=== PATIENT | female | born 2000 | race Caucasian/White ===

== ENCOUNTER 2022-08-30 17:12 | Emergency (ER) | payer OTHER, SELFPAY ==
[2022-08-30 17:29] VITALS: BP 120/80; PULSE 60; RESP 12; TEMP 36.4; O2SAT 100
--- NOTE | 2022-08-30 17:33 | ED.WOUNDLAC ---
HPI - Wound/Laceration General Chief Complaint: Skin/Abscess/Foreign Body Stated Complaint: rash Time Seen by Provider: 08/30/22 17:22 Source: patient Mode of arrival: ambulatory Limitations: no limitations History of Present Illness HPI narrative: Patient is a 21-year-old female that presents with wound to right forearm. States she noticed the center scab on Saturday at [place], but since then it has become more swollen, warm to touch, tender, hard and she feels it pulsing. Denies any drainage from wound. States she was cleaning out an old chicken coop on Saturday. Denies any numbness tingling to hand. Wound is over old surgical site for ulnar plate. Related Data Allergies Allergy/AdvReac Type Severity Reaction Status Date / Time No Known Allergies Allergy Verified 08/30/22 17:43 Review of Systems Review of Systems: All systems reviewed & are unremarkable except as noted in HPI and below Constitutional: Constitutional: Denies body ache(s), Denies fever(s), Denies headache(s), Denies malaise and Denies weakness Eyes: Eyes: Denies loss of vision ENT: Denies otalgia, Denies headache(s), Denies nasal discharge, Denies sinus pain and Denies sore throat Cardiovascular: Cardiovascular: Denies chest pain, Denies irregular heart rhythm and Denies dyspnea Respiratory: Respiratory: Denies dyspnea Gastrointestinal: Gastrointestinal: Denies abdominal pain, Denies melena, Denies hematochezia, Denies diarrhea, Denies nausea and Denies vomiting Musculoskeletal: Musculoskeletal: Denies back pain, Denies myalgias and Denies arthralgias Integumentary/Breasts: Skin/Breast: Reports pruritus and Reports lesions (right forearm) Neurologic: Denies headache(s), Denies loss of vision and Denies weakness Psychiatric: Psychiatric: Reports no additional psychiatric complaints PMFSH Comments At time of signature, agree with nursing past medical, surgical, social and family history. There is no relevant family history pertinent to the presenting complaint. Exam Const: General: cooperative, healthy appearing, comfortable, no acute distress and well nourished Nutritional Appearance: well nourished Orientation/consciousness: patient oriented x3 Limitations: no limitations HENMT: Head: normal to inspection, normocephalic and atraumatic Ears: external ears normal Face/Nose/Sinus: Normal external nose present, normal facial exam and face symmetric Face and sinus: normal facial exam and face symmetric Mouth: Yes lip normal Eyes: General: appearance normal, both eyes and all related structures Alignment and Position: alignment normal and position normal Periorbital: periorbital findings normal Eyelids: eyelids normal Pupils: Equal, round and reactive pupils present EOM: EOMs intact bilaterally Neck: Neck: normal visual inspection and full ROM Chest: Chest palpation & inspection: normal inspection of the chest Resp: Effort & Inspection: normal respiratory effort and able to speak in complete sentences Auscultation: clear to auscultation bilaterally Cardio: Rate: regular rate Rhythm: regular rhythm Heart sounds: S1 normal heart sound present and S2 normal heart sound present GI: Inspection: normal to inspection Skin: General skin exam: normal color Neuro: General: patient oriented x3 and moves all extremities Cranial nerves: Yes Equal, round and reactive pupils present Speech: normal speech Gait exam (Neuro): Normal gait present Extrem: General: normal to inspection, full ROM and no edema Right upper extremity: elbow/forearm abnormal to inspection erythema (midshaft forearm), tenderness of the mid-shaft forearm, swelling of the mid-shaft forearm medially, normal ROM, warmth (midshaft forearm) and distal pulses intact Elbow/forearm/wrist images: 1. 8cm by 5cm area of erythema, warmth, and induration noted. no fluctuance. center with 2 cm abrasion that was scabbed. visually see color change from pale to red with heart beat. tender on
== END 2022-08-30 17:55 | disposition home or self-care (01) ==
PROVIDERS: Emergency Provider Nurse Practitioner Family
DX: L03.113 Cellulitis of right upper limb (principal)
CPT/HCPCS: 87070; 87205; 99213; G0463

== ENCOUNTER 2025-03-02 18:38 | Emergency (ER) | payer OTHER, SELFPAY ==
--- OUTSIDE RECORDS SUMMARY | 2025-03-02 18:40 | XMS_ITS | Clinical Summary ---
Author Organization [facility] Address [address] [place] [address] Care Team Providers Care Environmental Field Technician Name Role Phone None, Provider MD Primary Care Provider Unavaila ble Allergies No known active allergies Medications hydrocortisone (CORTIZONE) 1 % ointment Apply topically 2 (two) times daily. 28 g 3 Active methylPREDNISol dorian BISHNU, (MEDROL DOSEPAK) 4 MG tablet 6 TABLETS ON DAY ONE, 5 TABLETS DAY TWO, 4 TABLETS DAY THREE, 3 TABLETS DAY FOUR, 2 TABLETS DAY FIVE, AND 1 TABLET DAY SIX 1 each 3 Active Social History Tobacco Use Types Packs/Day Years Used Date Smoking Tobacco: Never Assessed Comments No Sex and Gender Information Value Date Recorded Sex Assigned at Not on file Legal Sex Female 7:22 AM CDT Gender Identity Not on file Sexual Orientation Not on file Last Filed Vital Signs Vital Sign Reading Time Taken Comments Blood Pressure 127/67 09/03/2022 7:28 AM CDT Pulse 89 09/03/2022 7:28 AM CDT Temperature 36.6 C (97.9 F) 09/03/2022 7:28 AM CDT Respiratory Rate 16 09/03/2022 7:28 AM CDT Oxygen Saturation 99% 09/03/2022 7:28 AM CDT Inhaled Oxygen Concentration - - Weight 66.2 kg (146 lb) 09/03/2022 7:27 AM CDT Height 157.5 cm (5' 2) 09/03/2022 7:27 AM CDT Body Mass Index 26.7 09/03/2022 7:27 AM CDT Plan of Treatment Upcoming Encounters Date Type Department Care Team (Late st Contact Info) Description 03/11/2025 1:20 PM CDT Office Visit [facility] [address] [place] [address] Sara Flores, [facility] [address] [id number] Health Maintenance Due Date Last Done Comments Cervical Cancer Screening Pap Smear (Age 21 to 29) Every 3 Years 2002 Cervical Cancer Screening 2002 Annual Physical 2005 HPV Vaccines (1 - 3-dose series) 2017 Hepatitis C 2020 Meningococcal B Vaccine (2 of 2 - Trumenba SCDM 2-dose series) 06/25/2021 12/23/2020 DTaP, Tdap and Td Vaccines (7 - Td or Tdap) 11/14/2023 11/13/2013, 03/02/2008, 06/14/2004, Additional history exists COVID-19 Vaccine ( season) 2025 05/30/2021, 10/20/2020, 09/22/2020 Influenza Adult (#1) 2025 03/02/2008, 05/30/2005, 04/26/2004, Additional history exists Pneumococcal Vaccine: Pediatrics (0 to 5 Years) and At-Risk Patients (6 to 49 Years) Aged Out 03/06/2004, 07/09/2003, 04/06/2003, Additional history exists No longer eligible based on patient's age to complete this topic Meningococcal Vaccine Completed 12/23/2020 , 01/04/2016, 11/16/2014 Hepatitis B Vaccines Completed 06/12/2022, 02/20/2022, 01/23/2022, Additional history exists RSV Immunizations Under 20 Months Aged Out No longer eligible based on patient's age to complete this topic Insurance [facility] Care Teams Environmental Field Technician Relationship Specialty Start Date End Date None, Provider, PCP - General UNKNOWN PHYSICIAN SPECIALTY 09/03/22 1
--- OUTSIDE RECORDS SUMMARY | 2025-03-02 18:40 | XMS_ITS | Clinical Summary ---
Author Organization [facility] Address [address] [place] [address] Care Team Providers Care Machine Brush Maker Name Role Phone Isai Sahu MD Primary Care Provider [phone] Source Comments [facility],non-owned Affiliates and Associated Physician Practices is amultiple site organization consisting of ambulatory clinics and hospital sitesin [place], [place], [place] and [place]. This disclosure is being madepursuant to the Care Everywhere program and may not contain all information available regarding this patient. Last updated 18.[facility] Allergies Active Allergy Reactions Criticality Noted Date Comments Clindamycin Itching,Skin Reactions 06/09/2024 Medications * Be aware that medications may not be up to date on this document. Alwaysverify current medications with the patient. atomoxetine (Strattera) 40 MG capsule 03/09/2024 Active Active Problems No known active problems Immunizations Immunization Administration Dates Next Due Covdilip Automatic Agency primary monoval ent 12+ yr 0.3mL Purple cap 10/20/2020,09/22/2020 DTaP VACCINE IM (6wk-6yrs) 03/02/2008,,07/09/2003,04/06,02/02/2003 HEP A PEDS 2 DOSE 12/05/2005,05/30/2005 HEP B VACCINE, ADULT 3 DOSE 06/12/2022, 2,01/23/2022 HEP B VACCINE, PED/ADOL 09/08/2003,2002, HIB-PRP-T 4 DOSE 03/06/2004, 4,04/06/2003,02/02 INFLUENZA VACCINE 03/02/2008, 6,04/26/2004,03/06 MENINGOCOCCAL ACWY (MCV4P) VAC IM 12/23/2020,02/2016,11/16/2014 MENINGOCOCCAL B RECOMBINANT, 2 OR 3 DOSE, IM 12/23/2020 MMR 03/02/2008,03/06/2004 PNEUMOCOCCAL PCV7 CONJ, PEDS 03/06/2004, 07/09/2003,04/06/2003,02/02 POLIO IPV 03/02/2008, 4,04/06/2003,02/02 TDAP (7yrs+) 11/13/2013 VARICELLA 03/02/2008,03/06/2004 Family History Medical History Relation Name Comments None Known Father Dementia Maternal Grandfather Diabetes - Type 2 Maternal Grandmother None Known Mother Relation Name Status Comments Father Alive Maternal Grandfather Maternal Grandmother Alive Mother Alive Paternal Grandfather Paternal Grandmother Alive Sister Alive Social History Tobacco Use Types Packs/Day Years Used Date Smoking Tobacco: Never Smokeless Tobacco: Never Tobacco Cessation:Counseling Given: Not Answered Alcohol Use Standard Drinks/Week Comments Not Currently 0 (1 standard drink = 0.6 oz pur e alcohol) PHQ-2 Answer Date Recorded Patient Health Questionnaire-2 Score 0 06/10/2024 Comments No Sex and Gender Information Value Date Recorded Sex Assigned at Not on file Legal Sex Female 2:10 PM OPEN HEARTH MELTER Gender Identity Not on file Sexual Orientation Not on file Last Filed Vital Signs Vital Sign Reading Time Taken Comments Blood Pressure 122/72 06/10/2024 10:08 AM OPEN HEARTH MELTER Pulse 70 06/10/2024 10:08 AM OPEN HEARTH MELTER Temperature 36.7 C (98 F) 06/10/2024 10:08 AM OPEN HEARTH MELTER Respiratory Rate 16 06/10/2024 10:08 AM OPEN HEARTH MELTER Oxygen Saturation 99% 06/10/2024 10:08 AM OPEN HEARTH MELTER Inhaled Oxygen Concentration - - Weight 65.3 kg (144 lb) 06/10/2024 10:08 AM OPEN HEARTH MELTER Height 157.5 cm (5' 2) 06/10/2024 10:08 AM OPEN HEARTH MELTER Body Mass Index 26.34 06/10/2024 10:08 AM OPEN HEARTH MELTER Plan of Treatment Health Maintenance Due Date Last Done Comments HIV SCREENING 2017 HPV VACCINE (1 - 3-dose series) 2017 CHLAMYDIA/GONORRHEA SCREENING 2018 HEPATITIS C SCREENING 11/24/2020 MENINGOCOCCAL (Group B) VACC INE SHARED DECISION-MAKING (2 of 2 - Trumenba SCDM 2-dose series) 06/25/2021 12/23/2020 DTAP/TDAP/TD VACCINES (7 - T d or Tdap) 11/14/2023 11/13/2013, 03/02/2008, 06/14/2004, Additional history exists PAP SMEAR 11/30/2023 COVID-19 VACCINE (2024-2 6 season) 2025 02/06/2022, 10/20/2020, 09/22/2020 INFLUENZA VACCINE (#1) 2025 8, 05/30/2005, 04/26/2004, Additional history exists ZOSTER VACCINE (1 of 2) 2052 HIB VACCINE Completed 03/06/2004, 06/27, 04/06/2003, Additional history exists PNEUMOCOCCAL VACCINE Completed 03/06/2004, 07/09/2003, 04/06/2003, Additional history exists MENINGOCOCCAL GROUPS A/C/Y/W VACCINE Completed 12/23/2020, 01/04/2016, 11/16/2014 HEPATITIS B VACCINE Completed 06/12/2022, 02/20/2022, 01/23/2022, Additional history exists DEPRESSION SCREENING Completed 06/10/2024, 01/07/20 Insurance [facility] Care Teams Machine Brush Maker Relationship Specialty Start Date End Date Isai Sahu MD [address] [id number] PCP - General 07/03/24
--- OUTSIDE RECORDS SUMMARY | 2025-03-02 18:40 | XMS_ITS | Clinical Summary ---
Author Organization [facility] Address [facility] [place] [address] Care Team Providers Care Business Librarian Name Role Phone Nandini Everett MD Primary Care Provider [phone] Flavia Carballo MD Unavailable [phone] Allergies No known active allergies Medications acetaminophen (TYLENOL) 325 mg tablet Take 2 tablets (650 mg total) by mouth every 4 (four) hours as needed for pain 10/17/2020 Active ibuprofen (ADVIL,MOTRIN) 200 mg tab/cap Take 3 tablet/capsu le (600 mg total) by mouth every 6 (six) hours as needed for pain 10/17/2020 Active Active Problems Problem Noted Date Diagnosed Date Chronic pain of right wrist 09/26/2020 Overview (09/26/2020): Added automatically from request for surgery [id number] Acute right ankle pain 09/24/2018 Sprain of anterior talofibular ligament of right ankle 09/24/2018 Radius/ulna fracture 02/12/2012 Closed fracture of distal end of radius 02/12/20 12 Medical History Medical History Date Comments Chronic pain of right wrist 09/26/2020 Adde d automatically from request for surgery [id number] Family History Medical History Relation Name Comments No Known Problems Father Relation Name Status Comments Father Social History Tobacco Use Types Packs/Day Years Used Date Smoking Tobacco: Never Smokeless Tobacco: Never Alcohol Use Standard Drinks/Week Comments Never 0 (1 standard drink = 0.6 oz pur e alcohol) AUDIT-C Answer Date Recorded Q1: How often do you have a drink containing alc ohol? Never 01/13/2020 Average Number of Drinks Not on file 020 Frequency of Binge Drinking Not on file 12/25 Personal Safety Answer Date Recorded Getting School Help Needed Not on file 07/23 Comments Unknown Sex and Gender Information Value Date Recorded Sex Assigned at Not on file Legal Sex Female 10:07 AM MANAGER COUNCIL Gender Identity Not on file Sexual Orientation Not on file Obstetrics History Last Filed Vital Signs Vital Sign Reading Time Taken Comments Blood Pressure 134/66 10/17/2020 12:04 PM CDT Pulse 63 10/17/2020 12:04 PM CDT Temperature 36.6 C (97.9 F) 10/17/2020 12:04 PM CDT Respiratory Rate 20 10/17/2020 12:34 PM CDT Oxygen Saturation 98% 10/17/2020 12:04 PM CDT Inhaled Oxygen Concentration - - Weight 68.6 kg (151 lb 3.8 oz) 10/17/2020 8:10 A M CDT Height 161.5 cm (5' 3.58) 10/17/2020 8:10 AM CD T Body Mass Index 26.3 10/17/2020 8:10 AM CDT Plan of Treatment Not on file Medical Devices Implanted Type Area Gate Attendant Device Identifier Shelf Expiration Date Model / Serial / Lot [employer] Plul06 6 Hole Shortening Ulna Plate Bone Titanium Sterile - [id number] Implanted:Qty: 1 on 10/17/2020 by Flavia Carballo MD at [facility] Right: Arm [employer] PLUL06 / / [employer] 30-0258-S 3.5mm 14mm Nonlocking Hexalobe Elbow Screw Bone Sterile - [id number] Implanted:Qty: 1 on 10/17/2020 by Flavia Carballo MD at [facility] Right: Arm [employer] 30-0258-S / / [employer] 30-0257-S 3.5mm 12mm Nonlocking Hexalobe Elbow Screw Bone Sterile - [id number] Implanted:Qty: 5 on 10/17/2020 by Flavia Carblalo MD at [facility] Right: Arm [employer] -S / / [employer] -S Od3.5 Mm L18 Mm Nonlocking; Hexalobe Elbow Screw Bone Sterile - [id number] Implanted:Qty: 1 on 10/17/2020 by Flavia Carballo MD at [facility] Right: Arm [employer] 0-S / / Explanted Type Area Gate Attendant Device Identifier Shelf Expiration Date Model / Serial / Lot [employer] - 3.5mm 16mm Nonlocking Hexalobe Elbow Screw Bone Sterile - [id number] Explanted:Qty: 1 on 10/17/2020 at [facility] Right: Arm [employer] -S / / Insurance [facility] CHO[facility] PLUS [facility] PLUS [facility] PLUS [facility] PLUS [facility] CHO[facility] PLUS Member Subscriber Plan / Payer ( fective 2018-Present) Name:Steph Hylton Relation to Subscriber:Child Name:VIRGILIOPIARUTH Date of :1967 (Home) Address: [address] [place] [address] Payer ID:[id number] (NAIC) Type:[facility] HMO/PPO Address: [address] CHOICE PLUS Member Subscriber Plan / Payer (Ef fective 2020-Present) Name:Steph Hylton Relation to Subscriber:Other Relationship Name:DANETTE HYLTONA Date of :1965 Address: [address] [place] [address] Payer ID:[id number] (NAIC) Type:[facility] HMO/PPO Address: [address] CHOICE PLUS Advance Directives For more information, please contact: [phone] * Full Code (Latest Code Status on File) Date Activated Date Inactivated Comments 10/17/2020 8:10 AM 10/17/2020 4:48 PM Care Teams Business Librarian Relationship Specialty Start Date End Date Nandini Everett MD [address] [facility] [address] [facility] [address] [facility] [address], [address] [address] PCP - General Pediatrics 10/23/17 Flavia Carballo MD [address] [facility] [address] [facility], [facility] [address] [place] [address] Surgeon Orthopedic Surgery 10/17/20
--- NOTE | 2025-03-02 18:42 | ED.SKABFB ---
HPI - Skin/Abscess/Foreign Bdy General Chief complaint: Skin/Abscess/Foreign Body Stated complaint: Skin Time Seen by Provider: 03/02/25 18:42 Source: patient, RN notes reviewed and old records reviewed Mode of arrival: ambulatory Limitations: no limitations History of Present Illness HPI narrative: 24-year-old female presents to the [facility] with a rash, believes to be poison eleonora. Several patches to the bilateral legs, bilateral dorsal hands. No lip or tongue swelling. No difficulty breathing. No treatment prior to arrival Related Data Home Medications ?Medication ?Instructions ?Recorded ?Confirmed ?Last Taken ?Type guanfacine 2 mg tablet,extended mg PO 03/02/25 Unknown History release 24 hr Allergies Allergy/AdvReac Type Severity Reaction Status Date / Time clindamycin Allergy Mild Hives Verified 03/02/25 18:47 Review of Systems Review of Systems: All systems reviewed & are unremarkable except as noted in HPI and below Constitutional: Constitutional: Reports no additional constitutional complaints ENT: Reports system reviewed and no additional complaints, except as documented Cardiovascular: Cardiovascular: Reports no additional cardiovascular complaints, Denies chest pain and Denies dyspnea Respiratory: Respiratory: Reports no additional respiratory complaints, Denies chest congestion, Denies cough and Denies dyspnea Musculoskeletal: Musculoskeletal: Reports no additional musculoskeletal complaints Integumentary/Breasts: Skin/Breast: Reports as per HPI and Reports rash PMFSH Comments At the time of my signature, I reviewed and agree with the nursing past medical, surgical, social, and family history. There is no relevant family history pertinent to the patient complaint. Exam Const: General: cooperative, healthy appearing, comfortable, no acute distress, well developed, alert and well nourished Nutritional Appearance: well nourished Orientation/consciousness: patient oriented x3 Limitations: no limitations HENMT: Head: normal to inspection Mouth: Yes Normal oral and palatal mucosa present, Yes lip normal, Yes tongue normal and Yes moist mucous membranes Throat: posterior oropharynx normal, uvula midline and no uvular edema Eyes: General: appearance normal, both eyes and all related structures Alignment and Position: alignment normal Neck: Neck: normal visual inspection, full ROM, no lymphadenopathy and no meningeal signs Chest: Chest palpation & inspection: normal inspection of the chest Resp: Effort & Inspection: normal respiratory effort and able to speak in complete sentences Auscultation: clear to auscultation bilaterally, no crackles, no rales, no rhonchi and no wheezes Cardio: Rate: regular rate Skin: General skin exam: normal color and no rashes or lesions noted Rashes: rashes noted (Small vesicular areas to legs, surrounding erythema) Neuro: General: patient oriented x3, gait normal, moves all extremities and no meningeal signs Cognition (Neuro): normal cognition Speech: normal speech Gait exam (Neuro): Normal gait present Extrem: General: normal to inspection, full ROM, capillary refill normal and normal gait Psych: Appearance: grossly normal and well kempt Mental Status: mental status grossly normal Speech and movement: Normal speech and movement present and Clear speech present Affect: normal affect Attitude: cooperative Course Course Level of Care: Express Care Visit Vital Signs Vital signs: Vital Signs Temperature 97.3 F L 03/02/25 18:45 Pulse Rate 61 03/02/25 18:45 Respiratory Rate 16 03/02/25 18:45 Blood Pressure 120/65 03/02/25 18:45 Pulse Oximetry 100 03/02/25 18:45 Oxygen Delivery Room Air 03/02/25 18:45 Temperature 97.3 F L 03/02/25 18:45 Pulse Rate 61 03/02/25 18:45 Respiratory Rate 16 03/02/25 18:45 Blood Pressure 120/65 03/02/25 18:45 Pulse Oximetry 100 03/02/25 18:45 Oxygen Delivery Room Air 03/02/25 18:45 Reviewed MDM - Skin/Abscess/Foreign Bdy MDM Narrative Medical decision making narrative: Multiple patchy areas consistent with contact dermatitis most likely poison eleonora, poison oak. Patient is appropriate for outpatient she treatment with close follow-up Patient sitting comfortably in exam room patient is nontoxic, vitals are stable. Discharge instructions reviewed with patient, as well as provided in writing per nursing staff. The instructions also include specific and strict return/GO TO THE ER as well as f/u information. All questions have been answered, and the patient deny any further questions with discharge and discharge plan. Some parts of this dictation were generated by voice recognition software and may contain typographical and/or grammatical inaccuracies. Differential Diagnosis Differential diagnosis: Likely abscess of skin or subcutaneous tissue, urticaria, cellulitis, eczema, insect bites, impetigo and contact dermatitis Critical Care Time Critical Care Time Critical Care Time: No Discharge Plan Discharge Clinical Impression: Contact dermatitis Patient Disposition: Home Condition: Stable Instructions: Contact Dermatitis (DC), Poison Eleonora (ED) Additional Instructions: The most important part of your care is follow up with Primary care provider. Take Benadryl 25mg as needed for itching. You can take every 8 hours or I your bedtime. Take Zyrtec every day for 7 days Take Pepcid 20mg daily for 7 days Take the steroids starting in the morning Avoid hot showers, Take cool showers. Hot showers will make rashes worse Apply cool compresses every 2-3 hours for 15 minutes Go to the ER for new or worsening symptoms such as shortness of breath. Patient Language: Yoruba Prescriptions: New prednisone 20 mg tablet See Rx Instructions .Route .COMPLEX Qty: 15 0RF Rx Instructions: Take 40 mg daily for 5 days, 20 mg daily for 5 days No Action guanfacine 2 mg tablet extended release 24 hr PO Follow-up/Referrals: PHYSICIAN,VOCATIONAL GUIDANCE COUNSELOR [Primary Care Provider, Internal Medicine] Time of Disposition: 18:49
[2025-03-02 18:45] VITALS: BP 120/65; PULSE 61; RESP 16; TEMP 36.3; O2SAT 100
== END 2025-03-02 18:52 | disposition home or self-care (01) ==
PROVIDERS: Emergency Provider Nurse Practitioner
DX: L25.9 Unspecified contact dermatitis, unspecified cause (principal)
CPT/HCPCS: 99213; G0463